=== PATIENT | female | born 1970 | race Caucasian/White ===

== ENCOUNTER 2017-07-01 12:05 | Outpatient (CLI) | payer BC | END 2017-07-01 12:06 | disposition home or self-care (01) | LOC: BICRAD 12:05 | PROVIDERS: ATTEND Internal Medicine Rheumatology | DX: M45.2 Ankylosing spondylitis of cervical region (principal); M45.6 Ankylosing spondylitis lumbar region; K80.20 Calculus of gallbladder without cholecystitis without obstruction; M47.816 Spondylosis without myelopathy or radiculopathy, lumbar region | CPT/HCPCS: 72040; 72100 ==

== ENCOUNTER 2017-07-22 08:39 | Outpatient (CLI) | payer BC | END 2017-07-22 08:40 | disposition home or self-care (01) | LOC: BICMAMMO 08:39 | DX: Z12.31 Encounter for screening mammogram for malignant neoplasm of breast (principal); Z80.3 Family history of malignant neoplasm of breast | CPT/HCPCS: 77063; 77067 ==

== ENCOUNTER → 2017-08-30 | Day surgery (SDC) | payer BC ==
[2017-08-26 09:57] VITALS: BMI 49.4
[~2017-08-30] MED LIST: Acetaminophen 500 MG TAB ONE; Lidocaine 1% PF 5 ML VIAL ONE
--- NOTE | 2017-08-30 13:17 | OP ---
DATE OF PROCEDURE: 08/30/2017 SURGEON: Juan Fishman M.D. [employer] TEST PROGRAM MANAGER SURGEON: None. PROCEDURE: Colonoscopy with biopsies. PREOPERATIVE DIAGNOSES: 1. Change in bowel habits. 2. Chronic diarrhea. 3. History of inflammatory arthritis, rule out inflammatory bowel disease. MEDICATIONS: See anesthesia record. FINDINGS: After discussion of the risks, benefits and alternatives of the procedure, informed consen t was obtained and witnessed. Pre-endoscopic cardiopulmonary examination was satisfactory. Timeout was performed before sedation was achieved. Sedation was achieved with anesthesia assistance in the endoscopy unit. PROCEDURE IN DETAIL: Digital rectal exam was performed which was unremarkable. A Pentax adult colon oscope was inserted into the anus and passed forward to the cecum in the usual fashion. The cecal ba se was identified by the appendiceal orifice as well as the ileocecal valve. The terminal ileum was intubated and the ileal mucosa appeared normal. The colonoscope was then slowly withdrawn in a gradu al and circumferential manner with careful examination of the entire colonic mucosa. The quality of the prep was good. In the sigmoid colon, there was some diverticulosis. The colonic mucosa appeared normal throughout. There was no evidence of any inflammatory disease. I did obtain random biopsies from the right colon, transverse colon, and left colon to rule out microscopic colitis. Retroflexio n in the rectum was unremarkable. The colonoscope was completely withdrawn and the patient allowed t o recover. The patient tolerated the procedure well. There were no immediate post-procedure complic ations. IMPRESSION: 1. Sigmoid diverticulosis. 2. Otherwise, normal colonoscopy to the terminal ileum. 3. Random colon biopsies obtained to rule out microscopic colitis. RECOMMENDATIONS: 1. Follow up pathology on the colon biopsies. 2. Return to GI Clinic in 2 weeks. 3. Repeat colonoscopy in 10 years for screening purposes.
== END ==
LOC: SDC 10:26
PROVIDERS: ATTEND Internal Medicine
PROC: 0DBF8ZX Excision of Right Large Intestine, Via Natural or Artificial Opening Endoscopic, Diagnostic (ICD-10-PCS; principal; 2017-08-30)
PROC: 0DBL8ZX Excision of Transverse Colon, Via Natural or Artificial Opening Endoscopic, Diagnostic (ICD-10-PCS; principal; 2017-08-30)
PROC: 0DBG8ZX Excision of Left Large Intestine, Via Natural or Artificial Opening Endoscopic, Diagnostic (ICD-10-PCS; principal; 2017-08-30)
DX: R19.4 Change in bowel habit (principal); K52.9 Noninfective gastroenteritis and colitis, unspecified; M13.80 Other specified arthritis, unspecified site; K57.30 Diverticulosis of large intestine without perforation or abscess without bleeding; M45.9 Ankylosing spondylitis of unspecified sites in spine; E66.9 Obesity, unspecified; Z68.42 Body mass index [BMI] 45.0-49.9, adult; Z79.1 Long term (current) use of non-steroidal anti-inflammatories (NSAID); Z79.899 Other long term (current) drug therapy
CPT/HCPCS: 88305

== ENCOUNTER 2018-01-20 12:14 | Outpatient (CLI) | payer BC | END 2018-01-20 12:15 | disposition home or self-care (01) | LOC: BICRAD 12:14 | PROVIDERS: ATTEND Internal Medicine Rheumatology | DX: M45.0 Ankylosing spondylitis of multiple sites in spine (principal) | CPT/HCPCS: 71046 ==

== ENCOUNTER 2018-08-10 10:13 | Outpatient (CLI) | payer OTHER ==
--- NOTE | 2018-08-10 15:34 | MMO ---
Bilateral MAMMO Bilat Screen [facility]. CLINICAL HISTORY: Patient is 48 years old and is seen for screening. The patient has the following family history of breast cancer: mother, at age 68 and sister, at age 51. The patient has no personal history of cancer. VIEWS: The views performed were: bilateral craniocaudal with tomosynthesis and bilateral mediolateral oblique with tomosynthesis. FILMS COMPARED: The present examination has been compared to prior imaging studies performed at [facility] on 07/22/2017, and at [facility] on 07/13/2013 and 01/07/2016. MAMMOGRAM FINDINGS: There are scattered fibroglandular densities. There are benign appearing calcifications seen in both breasts. There are no suspicious masses, calcifications or areas of architectural distortion. IMPRESSION: CALCIFICATIONS IN BOTH BREASTS ARE BENIGN. A ROUTINE FOLLOW-UP MAMMOGRAM IN 1 YEAR IS RECOMMENDED. THE RESULTS OF THIS EXAM WERE SENT TO THE PATIENT. ACR BI-RADS Category 2 - Benign finding MAMMOGRAPHY NOTE: 1. A negative mammogram report should not delay a biopsy if a dominant of clinically suspicious mass is present. 2. Approximately 10% to 15% of breast cancers are not detected by mammography. 3. Adenosis and dense breasts may obscure an underlying neoplasm.
== END 2018-08-10 10:14 | disposition home or self-care (01) ==
LOC: BICMAMMO 10:13
PROVIDERS: ATTEND Obstetrics & Gynecology Gynecologic Oncology
DX: Z12.31 Encounter for screening mammogram for malignant neoplasm of breast (principal); R92.1 Mammographic calcification found on diagnostic imaging of breast; Z80.3 Family history of malignant neoplasm of breast
CPT/HCPCS: 77063; 77067